=== PATIENT | female | born 1990 | race Native Hawaiian/Other Pacific Islander ===

== ENCOUNTER 2020-06-01 11:17 | Outpatient (CLI) | payer OTHER | END 2020-06-01 22:12 | disposition home or self-care (01) | LOC: LAB 11:17 | PROVIDERS: ATTEND Physician Assistant | DX: E03.4 Atrophy of thyroid (acquired) (principal) | CPT/HCPCS: 84439; 84443; 84481 ==

== ENCOUNTER 2020-08-30 10:20 | Outpatient (CLI) | payer OTHER | END 2020-08-30 22:20 | disposition home or self-care (01) | LOC: LAB 10:20 | PROVIDERS: ATTEND Physician Assistant | DX: E03.4 Atrophy of thyroid (acquired) (principal) | CPT/HCPCS: 84439; 84443; 84481 ==

== ENCOUNTER 2020-11-30 11:36 | Outpatient (CLI) | payer OTHER | END 2020-11-30 20:13 | disposition home or self-care (01) | LOC: LAB 11:36 | PROVIDERS: ATTEND Nurse Practitioner Family | DX: E03.4 Atrophy of thyroid (acquired) (principal) | CPT/HCPCS: 84439; 84443; 84481 ==

== ENCOUNTER 2021-08-22 11:17 | Outpatient (CLI) | payer OTHER | END 2021-08-22 18:52 | disposition home or self-care (01) | LOC: LAB 11:17 | PROVIDERS: ATTEND Nurse Practitioner Family | DX: E03.4 Atrophy of thyroid (acquired) (principal) | CPT/HCPCS: 84439; 84443; 84481 ==